=== PATIENT | female | born 1975 | race African-American/Black ===

== ENCOUNTER 2017-01-27 07:52 | Emergency (ER) | payer MEDICAID ==
[~2017-01-27] VITALS: Ht 162.6 cm; Wt 89.4 kg
[~2017-01-27 07:52] MED LIST: LAMO150T3; xanax
[2017-01-27] MEDS ORDERED: SODIUM CHLORIDE 0.9% 1,000ML IVBOLUS ONE (09:00)
[2017-01-27] MEDS ORDERED: ONDANSETRON 2MG/ML, 2ML IVPush ONE (09:00)
[2017-01-27] MEDS ORDERED: SODIUM CHLORIDE FLUSH 10ML SYR IVF ONE (09:00)
[2017-01-27] MEDS ORDERED: ONDANSETRON 2MG/ML, 2ML ONE (09:44)
[2017-01-27] MEDS ORDERED: MORPHINE SULFATE 4 MG/ML, 1ML ONE ×2 (09:44→10:48)
[2017-01-27] MEDS: MORPHINE SULFATE 4 MG/ML, 1ML IVPush PRN ×2 (09:49→10:52)
[2017-01-27 10:03] LABS: ASPARTATE AMINO TRANSFERASE 35 U/L (15-37); BLOOD UREA NITROGEN 10 mg/dL (7-18)
[2017-01-27] MEDS ORDERED: OMNIPAQUE 350 MG/ML, 100ML BOTTLE ONE (10:40)
[2017-01-27] MEDS ORDERED: PROCHLORPERAZINE 5 MG/ML, 2ML ONE (11:05)
[2017-01-27] MEDS ORDERED: PROCHLORPERAZINE 5 MG/ML, 2ML IVPush ONE (11:30)
[2017-01-27 12:23] VITALS: BP 111/63
== END 2017-01-27 12:25 | disposition home or self-care (01) ==
LOC: ED 10:55
DX: R19.00 Intra-abdominal and pelvic swelling, mass and lump, unspecified site (principal); R10.2 Pelvic and perineal pain; Z90.710 Acquired absence of both cervix and uterus; Z87.891 Personal history of nicotine dependence
CPT/HCPCS: 36415; 74177; 80053; 81003; 83690; 85025; 96361; 96374; 96375; 96376; 99285; J0780; J2405; J7030; Q9967

== ENCOUNTER 2017-01-28 19:50 | Emergency (ER) | payer MEDICAID ==
[~2017-01-28] VITALS: Ht 162.6 cm; Wt 88.8 kg
[2017-01-28] MEDS ORDERED: SODIUM CHLORIDE 0.9% 1,000ML IVBOLUS ONE (20:30)
[2017-01-28] MEDS ORDERED: ONDANSETRON 2MG/ML, 2ML IVPush ONE (20:30)
[2017-01-28] MEDS ORDERED: MORPHINE SULFATE 4 MG/ML, 1ML IVPush PRN (20:30)
[2017-01-28 21:20] LABS: BLOOD UREA NITROGEN 9 mg/dL (7-18)
[2017-01-28 21:23] LABS: ASPARTATE AMINO TRANSFERASE 39 U/L (15-37)
[2017-01-28] MEDS ORDERED: OXYcodone/APAP 5/325MG TABLET ONE (22:29)
[2017-01-28] MEDS ORDERED: KETOROLAC 30 MG/1 ML ONE (22:29)
[2017-01-28] MEDS ORDERED: KETOROLAC 30 MG/1 ML IM ONE (22:30)
[2017-01-28] MEDS ORDERED: OXYcodone/APAP 5/325MG TABLET PO ONE (22:30)
[2017-01-28 23:57] VITALS: BP 111/75
== END 2017-01-29 00:45 | disposition home or self-care (01) ==
LOC: ED 22:14
DX: N83.291 Other ovarian cyst, right side (principal); R10.31 Right lower quadrant pain; R10.32 Left lower quadrant pain; F17.200 Nicotine dependence, unspecified, uncomplicated
CPT/HCPCS: 36415; 76830; 80053; 81003; 85025; 93005; 96372; 99285; J1885

== ENCOUNTER 2017-01-29 20:06 | Emergency (ER) | payer MEDICAID ==
[~2017-01-29] VITALS: Ht 162.6 cm; Wt 89.4 kg
[2017-01-29] MEDS ORDERED: ONDANSETRON ODT 4 MG ONE (21:22)
[2017-01-29] MEDS ORDERED: HYDROcodone/APAP 5/325 TABLET ONE (21:22)
[2017-01-29] MEDS ORDERED: HYDROcodone/APAP 5/325 TABLET PO ONE (21:30)
[2017-01-29] MEDS ORDERED: ONDANSETRON ODT 4 MG PO ONE (21:30)
[2017-01-29 22:56] VITALS: BP 130/67
== END 2017-01-29 22:59 | disposition home or self-care (01) ==
LOC: ED 22:11
DX: N83.291 Other ovarian cyst, right side (principal); Z90.710 Acquired absence of both cervix and uterus
CPT/HCPCS: 76830; 81003; 99285; Q0162

== ENCOUNTER 2017-07-24 22:39 | Emergency (ER) | payer MEDICAID ==
[~2017-07-24] VITALS: Ht 162.6 cm; Wt 72.0 kg
[2017-07-24] MEDS ORDERED: RISP2TAB3 PO (22:56)
[2017-07-25 00:19] VITALS: BP 119/80
== END 2017-07-25 00:22 | disposition home or self-care (01) ==
LOC: ED 07-25 00:16
DX: F32.0 Major depressive disorder, single episode, mild (principal); F17.200 Nicotine dependence, unspecified, uncomplicated; Z90.710 Acquired absence of both cervix and uterus
CPT/HCPCS: 82962; 99284

== ENCOUNTER 2017-08-27 12:07 | Emergency (ER) | payer MEDICAID ==
[~2017-08-27] VITALS: Ht 162.6 cm; Wt 76.0 kg
[~2017-08-27 12:07] MED LIST changes: +RISP2TAB3 PO
[2017-08-27] MEDS ORDERED: PHENAZOPYRIDINE 200 MG TABLET ONE ×2 (12:57→14:09)
[2017-08-27 13:27] LABS: HEMATOCRIT 41.8 % (34.6-47.8); HEMOGLOBIN 14.3 g/dL (11.7-16.4); WHITE BLOOD COUNT 3.7 x10^3/uL (3.4-10)
[2017-08-27] MEDS ORDERED: PHENAZOPYRIDINE 200 MG TABLET PO ONE (13:30)
[2017-08-27 13:40] LABS: BLOOD UREA NITROGEN 10 mg/dL (7-18)
[2017-08-27 13:44] LABS: ASPARTATE AMINO TRANSFERASE 38 U/L (15-37)
[2017-08-27] MEDS ORDERED: CEFTRIAXONE 1,000 MG IM ONE (14:00)
[2017-08-27] MEDS ORDERED: CEFTRIAXONE 1,000 MG ONE (14:09)
[2017-08-27 14:13] VITALS: BP 130/88
== END 2017-08-27 14:14 | disposition home or self-care (01) ==
LOC: ED 12:30
DX: N12 Tubulo-interstitial nephritis, not specified as acute or chronic (principal); N39.0 Urinary tract infection, site not specified; K21.9 Gastro-esophageal reflux disease without esophagitis; Z90.710 Acquired absence of both cervix and uterus
CPT/HCPCS: 36415; 80053; 81001; 85025; 87086; 96372; 99284; J0696